=== PATIENT | male | born 1990 | race Caucasian/White ===

== ENCOUNTER 2016-10-20 02:34 | Emergency (ER) | payer BC ==
[~2016-10-20] VITALS: Ht 177.8 cm; Wt 76.0 kg
[2016-10-20] MEDS ORDERED: SODIUM CHLORIDE FLUSH 10ML SYR IVF ONE (03:00)
[2016-10-20] MEDS ORDERED: SODIUM CHLORIDE 0.9% 1,000ML IVBOLUS ONE (03:00)
[2016-10-20] MEDS ORDERED: DIPHENHYDRAMINE 50 MG/ML, 1ML IVPush ONE (03:00)
[2016-10-20] MEDS ORDERED: KETOROLAC 30 MG/1 ML IVPush ONE (03:00)
[2016-10-20] MEDS ORDERED: PROCHLORPERAZINE 5 MG/ML, 2ML IVPush ONE (03:00)
[2016-10-20] MEDS ORDERED: SUMATRIPTAN 6MG/0.5ML SQ ONE ×2 (03:00→03:48)
[2016-10-20 03:38] LABS: HEMATOCRIT 50.7 % (39.2-51.8); HEMOGLOBIN 17.2 g/dL (13.7-18.0); WHITE BLOOD COUNT 10.6 x10^3/uL (3.4-10)
[2016-10-20] MEDS ORDERED: PROCHLORPERAZINE 5 MG/ML, 2ML ONE (03:47)
[2016-10-20] MEDS ORDERED: DIPHENHYDRAMINE 50 MG/ML, 1ML ONE (03:47)
[2016-10-20] MEDS ORDERED: KETOROLAC 30 MG/1 ML ONE (03:47)
[2016-10-20 03:50] LABS: BLOOD UREA NITROGEN 11 mg/dL (7-18)
[2016-10-20 04:24] VITALS: BP 136/62
== END 2016-10-20 04:27 | disposition home or self-care (01) ==
LOC: ED 04:21
DX: G43.001 Migraine without aura, not intractable, with status migrainosus (principal)
CPT/HCPCS: 36415; 70450; 80048; 82040; 85025; 85651; 93005; 96372; 96374; 96375; 99285; J0780; J1200; J1885; J3030; J7030